=== PATIENT | male | born 1975 | race Caucasian/White ===

== ENCOUNTER 2019-06-03 09:29 | Emergency (ER) | payer OTHER, BC ==
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
[2019-06-03 10:23] LABS: CHLORIDE,CL 104 mmol/L (98-107); SODIUM,NA 140 mmol/L (136-148)
--- NOTE | 2019-06-03 10:25 | CR ---
EXAMINATION: Portable chest radiograph. HISTORY: Pain. FINDINGS: The trachea is midline. The cardiomediastinal silhouette is within normal limits. No pulmonary infiltrates, effusions or pneumothorax. Osseous structures appear unremarkable. IMPRESSION: No acute cardiopulmonary process.
--- NOTE | 2019-06-03 10:26 | CR ---
EXAMINATION: Lumbar spine HISTORY: Pain COMPARISON: None TECHNIQUE: Single AP view FINDINGS: The lumbar spinal alignment is grossly unremarkable. Vertebral body heights and disc spaces appear maintained. SI joints are symmetric. Iliopectineal lines are intact. There is no acute osseous abnormality, dislocation, or fracture. IMPRESSION: No acute osseous abnormality identified.
== END 2019-06-03 10:42 | disposition home or self-care (01) ==
LOC: MW.ED 09:29
DX: M54.5 Low back pain (principal); Z91.013 Allergy to seafood; Z91.041 Radiographic dye allergy status; V89.2XXA Person injured in unspecified motor-vehicle accident, traffic, initial encounter
CPT/HCPCS: 36415; 71045; 72020; 80053; 80305; 81003; 85025; 93005; 99284; G0480